=== PATIENT | female | born 1950 | race Caucasian/White ===

== ENCOUNTER → 2018-11-02 | Outpatient (CLI) | payer OTHER ==
[~2018-11-02] MED LIST: /ESOM40CA OR; ASPI81TA45 OR; LIDO5DIS EX; MOTRIN PM OR; TRAM50TA2 OR
--- NOTE | 2018-11-02 11:26 | REP ---
CERVICAL SPINE, EIGHT VIEWS: HISTORY: Neck pain. The cervical spine is visualized from C1 to the C5-6 level in the lateral radiographs. There is no acute fracture or subluxation. The C5-6 intervertebral disc is decreased in height consistent with disc degeneration. The neural foramina are not well seen, however, there appears to be narrowing of the C5 neural foramina secondary to uncinate process hypertrophy. IMPRESSION: Degenerative change as described above. Electronically Signed by Matthew Kirby MD 11/02/2018 11:27 A
== END ==
LOC: M WUC 10:24
PROVIDERS: ATTEND Physician Assistant
DX: M50.322 Other cervical disc degeneration at C5-C6 level (principal)

== ENCOUNTER → 2021-07-17 | Outpatient (CLI) | payer MEDICARE, OTHER ==
[~2021-07-17] MED LIST changes: -/ESOM40CA OR; +HYDR-3490 PO; +LOSA25TA13 PO; +NEXI1CAP3 OR
[2021-07-17 16:00] VITALS: BP 154/84
== END ==
LOC: M WHCPRO 15:00
PROVIDERS: ATTEND Surgery
DX: D24.2 Benign neoplasm of left breast (principal); N63.24 Unspecified lump in the left breast, lower inner quadrant
CPT/HCPCS: 19083; 77065; 88305; G0279

== ENCOUNTER → 2021-10-26 | Outpatient (CLI) | payer MEDICARE, OTHER | LOC: M WHC 13:54 | PROVIDERS: ATTEND Surgery | DX: N64.4 Mastodynia (principal) ==

== ENCOUNTER → 2022-12-20 | Outpatient (CLI) | payer MEDICARE, OTHER | LOC: M WUC 10:02 | PROVIDERS: ATTEND Nurse Practitioner Family | DX: M19.011 Primary osteoarthritis, right shoulder (principal) ==

== ENCOUNTER 2024-07-30 14:25 | Emergency (ER) | payer MEDICARE, OTHER ==
[~2024-07-30] VITALS: Ht 160 cm; Wt 95.1 kg
[2024-07-30 15:32] LABS: BASO # 0.1 10^3/uL (0.0-0.2); EOS # 0.3 10^3/uL (0.0-0.5); EOS % 2.8 % (0.0-3.0); HEMATOCRIT 41.8 % (36.0-47.0); HEMOGLOBIN 13.7 g/dl (12.0-15.5); LYMPH # 2.8 10^3/uL (1.5-5.0); LYMPH % 25.5 % (24.0-44.0); MEAN CORPUSCULAR HEMOGLOBIN 29.6 pg (27.0-33.0); MEAN CORPUSCULAR HGB CONC 32.8 g/dl (32.0-36.5); MEAN CORPUSCULAR VOLUME 90.3 fl (80.0-96.0); MONO # 0.9 10^3/uL (0.0-0.8); MONO % 8.5 % (2.0-8.0); NEUTROPHILS # 6.7 10^3/uL (1.5-8.5); NEUTROPHILS % 61.7 % (36.0-66.0); PLATELET COUNT, AUTOMATED 279 10^3/uL (150-450); RED BLOOD COUNT 4.63 10^6/uL (4.00-5.40); WHITE BLOOD COUNT 10.8 10^3/uL (4.0-10.0)
[2024-07-30 15:47] LABS: INR 0.89; PARTIAL THROMBOPLASTIN TIME 24.5 SECONDS (24.8-34.2); PROTHROMBIN TIME 12.3 SECONDS (12.5-14.5)
[2024-07-30] MEDS: LIDOCAINE VISCOUS 2% SOLN 15ML UDC PO ONE (15:52)
[2024-07-30] MEDS: MAALOX 30 ML SUSP *UDC PO ONE (15:52)
[2024-07-30 15:57] LABS: LIPASE 69 U/L (12-53)
[2024-07-30 15:59] LABS: ALBUMIN 3.6 G/DL (3.2-5.2); ALKALINE PHOSPHATASE 103 U/L (35-104); ALT/SGPT 22 U/L (7.0-40); AST/SGOT 22 U/L (<34); BILIRUBIN,DIRECT < 0.1 MG/DL (<0.4); BILIRUBIN,TOTAL 0.2 MG/DL (0.3-1.2); BLOOD UREA NITROGEN 24 MG/DL (9-23); CARBON DIOXIDE LEVEL 31 MMOL/L (20-31); CHLORIDE LEVEL 102 MMOL/L (98-107); CK-MB VALUE MASS < 1.0 NG/ML (<3.6); CREATININE FOR GFR 1.11 MG/DL (0.55-1.30); GLOMERULAR FILTRATION RATE 51.2 (>39); GLUCOSE, FASTING 112 MG/DL (74-106); POTASSIUM SERUM 3.9 MMOL/L (3.5-5.1); SODIUM LEVEL 139 MMOL/L (136-145); TOTAL PROTEIN 7.4 G/DL (5.7-8.2)
[2024-07-30 16:02] LABS: THYROID STIMULATING HORMONE 2.204 uIU/ML (0.55-4.78)
[2024-07-30 16:03] LABS: FREE T4 1.17 NG/DL (0.89-1.76)
[2024-07-30 16:06] LABS: CPK CREATINE PHOSPHOKINASE 60 U/L (34-145); MB/CK RELATIVE INDEX 1.66 (< OR =4)
[2024-07-30] MEDS ORDERED: ISOVUE-370 76% 100ML VIAL As Ordered ONE (16:32)
[2024-07-30 17:03] LABS: CK-MB VALUE MASS 11.5 NG/ML (<3.6)
[2024-07-30 17:05] LABS: MB/CK RELATIVE INDEX 1.51 (< OR =4)
[2024-07-30 18:45] VITALS: BP 153/65
[2024-07-30 18:55] VITALS: TEMP 97.3; O2SAT 95
== END 2024-07-30 19:03 | disposition home or self-care (01) ==
LOC: M ED 14:25
DX: R07.9 Chest pain, unspecified (principal); I49.3 Ventricular premature depolarization; K59.00 Constipation, unspecified; K76.0 Fatty (change of) liver, not elsewhere classified; I10 Essential (primary) hypertension; Z88.0 Allergy status to penicillin; Z90.49 Acquired absence of other specified parts of digestive tract; Z79.899 Other long term (current) drug therapy
CPT/HCPCS: 36415; 71045; 71275; 74177; 80048; 80076; 82550; 82553; 83690; 84439; 84443; 84484; 85025; 85610; 85730; 93005; 93041; 94760; 99285; Q9967

== ENCOUNTER → 2025-05-23 | Outpatient (CLI) | payer MEDICARE, OTHER ==
[2025-05-23 15:02] LABS: BASO # 0.1 10^3/uL (0.0-0.2); BASO % 1.3 % (0.0-1.0); EOS # 0.3 10^3/uL (0.0-0.5); EOS % 3.6 % (0.0-3.0); LYMPH # 2.5 10^3/uL (1.5-5.0); LYMPH % 27.1 % (24.0-44.0); MONO # 0.7 10^3/uL (0.0-0.8); MONO % 7.7 % (2.0-8.0); NEUTROPHILS # 5.4 10^3/uL (1.5-8.5); NEUTROPHILS % 59.9 % (36.0-66.0); PLATELET COUNT, AUTOMATED 376 10^3/uL (150-450)
[2025-05-23 15:09] LABS: C REACTIVE PROTEIN QUANTITATIV 0.72 MG/DL (<1.0)
[2025-05-23 15:11] LABS: ALT/SGPT 18.0 U/L (7.0-40); AST/SGOT 18.0 U/L (<34); CALCIUM LEVEL 9.7 MG/DL (8.3-10.6); CARBON DIOXIDE LEVEL 29.0 MMOL/L (20-31); CHLORIDE LEVEL 103.0 MMOL/L (98-107); CREATININE FOR GFR 1.02 MG/DL (0.55-1.30); ERYTHROCYTE SEDIMENTATION RATE 42 mm/hr (0-30); GLOMERULAR FILTRATION RATE 57.4 (>39); POTASSIUM SERUM 4.1 MMOL/L (3.5-5.1); SODIUM LEVEL 143.0 MMOL/L (136-145)
== END ==
LOC: M WUC 12:01
PROVIDERS: ATTEND Physician Assistant
DX: M54.2 Cervicalgia (principal)